=== PATIENT | male | born 1995 | race Caucasian/White ===

== ENCOUNTER 2019-07-21 14:23 | Emergency (ER) | payer OTHER ==
[~2019-07-21] VITALS: Ht 172.7 cm; Wt 99.8 kg
[~2019-07-21 14:23] MED LIST: CODEINE-GUAIFE473 ML PO; IBUPROFEN600 MG PO; NORCO 5-325 TA1 EACH PO; ZITHROMAX250 MG PO
[2019-07-21] MEDS ORDERED: AMOXICILLIN500 MG PO (15:57)
== END 2019-07-21 16:19 | disposition home or self-care (01) ==
LOC: ED 14:23
PROC: 0XQPXZZ Repair Left Index Finger, External Approach (ICD-10-PCS; principal; 2019-07-21)
PROC: 0XQRXZZ Repair Left Middle Finger, External Approach (ICD-10-PCS; 2019-07-21)
DX: S61.213A Laceration without foreign body of left middle finger without damage to nail, initial encounter (principal); S61.211A Laceration without foreign body of left index finger without damage to nail, initial encounter; F17.200 Nicotine dependence, unspecified, uncomplicated; Z23 Encounter for immunization; W31.2XXA Contact with powered woodworking and forming machines, initial encounter
CPT/HCPCS: 12001; 73130; 90471; 90715; 99283-25; 99406

== ENCOUNTER 2020-07-29 06:39 | Emergency (ER) | payer OTHER ==
[~2020-07-29] VITALS: Ht 172.7 cm; Wt 103.0 kg
[~2020-07-29 06:39] MED LIST changes: +AMOXICILLIN500 MG PO
[2020-07-29] MEDS ORDERED: OMEPRAZOLE20 MG PO (07:20)
== END 2020-07-29 07:50 | disposition home or self-care (01) ==
LOC: ED 06:39
DX: M54.5 Low back pain (principal); F17.200 Nicotine dependence, unspecified, uncomplicated
CPT/HCPCS: 99283; A9270